=== PATIENT | male | born 1995 | race Caucasian/White ===

== ENCOUNTER 2025-01-14 20:08 | Emergency (ER) | payer SELFPAY ==
[2025-01-14 20:26] VITALS: BP 154/52; PULSE 77; RESP 18; TEMP 36.9; O2SAT 98; BMI 34.5
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
[2025-01-14 20:44] VITALS: BP 137/80; PULSE 80; RESP 15; TEMP 36.6; O2SAT 98
[2025-01-14] MEDS: Diphth,Pertus(ACell),Tet Adult 0.5 ML SYRINGE IM (20:45)
[2025-01-14] MEDS: Silver Sulfadiazine 1 % Cream 20 GM TUBE 1 APPL TOPICAL (20:46)
[2025-01-14 20:55] VITALS: BP 137/80; PULSE 80; RESP 15; TEMP 36.6; O2SAT 98
== END 2025-01-14 21:43 | disposition home or self-care (01) ==
PROVIDERS: Emergency Provider Emergency Medicine
DX: T24.231A Burn of second degree of right lower leg, initial encounter (principal); X17.XXXA Contact with hot engines, machinery and tools, initial encounter; Y93.89 Activity, other specified; Y92.410 Unspecified street and highway as the place of occurrence of the external cause; Y99.9 Unspecified external cause status; Z23 Encounter for immunization
CPT/HCPCS: 90471; 90715; 99283; 99284